=== PATIENT | male | born 1965 | race Caucasian/White ===

== ENCOUNTER 2016-12-30 10:51 | Outpatient (CLI) | payer OTHER | END 2016-12-30 10:52 | disposition home or self-care (01) | DX: R07.9 Chest pain, unspecified (principal); I10 Essential (primary) hypertension; E78.5 Hyperlipidemia, unspecified; E11.9 Type 2 diabetes mellitus without complications; E66.01 Morbid (severe) obesity due to excess calories ==

== ENCOUNTER 2017-07-18 06:56 | Day surgery (SDC) | payer OTHER ==
[2017-07-18] MEDS ORDERED: LACTATED RINGERS 1,000 ML IV ONE ×2 (07:10→08:44)
[2017-07-18] MEDS ORDERED: MIDAZOLAM 2 MG/2 ML VIAL IVP ONE (08:30)
[2017-07-18] MEDS ORDERED: fentaNYL 100 MCG/2 ML VIAL IVP ONE (08:30)
[2017-07-18 09:50] VITALS: BP 128/70
== END 2017-07-18 06:57 | disposition home or self-care (01) ==
LOC: SDS 06:56
PROVIDERS: ATTEND Surgery
PROC: 0DJD8ZZ Inspection of Lower Intestinal Tract, Via Natural or Artificial Opening Endoscopic (ICD-10-PCS; principal; 2017-07-18 08:15)
DX: Z12.11 Encounter for screening for malignant neoplasm of colon (principal); K57.30 Diverticulosis of large intestine without perforation or abscess without bleeding; Z80.0 Family history of malignant neoplasm of digestive organs; E11.9 Type 2 diabetes mellitus without complications; E78.5 Hyperlipidemia, unspecified; I10 Essential (primary) hypertension; G47.30 Sleep apnea, unspecified; Z87.891 Personal history of nicotine dependence
CPT/HCPCS: 45378; J7120

== ENCOUNTER 2020-08-06 20:20 | Inpatient (IN) | payer OTHER ==
--- NOTE | 2020-08-06 20:43 | ED Physician Documentation ---
History of Present Illness - Stated complaint Stated Complaint: ABD PX - Chief complaint Chief Complaint: Abd Pain - History obtained from History obtained from: Patient - Additonal information Additional information: The patient is a 55 Y/O M who presents with a cc of periumbilical abd pain with nausea but no vomiting or diarrhea/constipation. denies any flank pain, dysuria or hematuria. denies any hx of prior abd surgery. denies any other complaints to include fever/cp/sob. Review of Systems Constitutional: reports: Reviewed and negative Eyes: reports: Reviewed and negative Ears: reports: Reviewed and negative Nose: reports: Reviewed and negative Throat: reports: Reviewed and negative Cardiac: reports: Reviewed and negative Respiratory: reports: Reviewed and negative GI: reports: Abdominal Pain, Nausea : reports: Reviewed and negative Skin: reports: Reviewed and negative Musculoskeletal: reports: Reviewed and negative Neurologic: reports: Reviewed and negative Psychiatric: reports: Reviewed and negative Endocrine: reports: Reviewed and negative Immunocompromised: reports: Reviewed and negative PD PAST MEDICAL HISTORY - Past Medical History Cardiovascular: Hypertension, High cholesterol, Coronary artery disease Respiratory: Sleep apnea Endocrine/Autoimmune: Type 2 diabetes GI: None : None HEENT: None Psych: None Musculoskeletal: None Derm: None - Past Surgical History Past Surgical History: No Ortho: Other - Present Medications Home Medications: Ambulatory Orders Medication Instructions Recorded Confirmed Aspirin [Adult Low Dose Aspirin EC] 81 mg PO DAILY 07/18/17 07/18/17 Atorvastatin [Lipitor] 1 tab PO DAILY 07/18/17 07/18/17 Gabapentin [Neurontin] 300 mg PO HS 07/18/17 07/18/17 Lisinopril [Prinivil] 10 mg PO DAILY 07/18/17 07/18/17 metFORMIN [Glucophage] 500 mg PO DAILY 07/18/17 07/18/17 - Allergies Allergies/Adverse Reactions: Allergies Allergy/AdvReac Type Severity Reaction Status Date / Time No Known Drug Allergies Allergy Verified 08/06/20 20:30 - Social History Does the pt smoke?: No Smoking Status: Never smoker Does the pt drink ETOH?: No Does the pt have substance abuse?: No - Immunizations Immunizations are current?: Yes - POLST Patient has POLST: No PD ED PE NORMAL - Vitals Vital signs reviewed: Yes - General General: Alert and oriented X 3, No acute distress, Well developed/nourished - HEENT HEENT: Atraumatic, PERRL, Moist mucous membranes - Neck Neck: Supple, no meningeal sign, No JVD - Cardiac Cardiac: RRR, No murmur, Strong equal pulses - Respiratory Respiratory: No respiratory distress, Clear bilaterally - Abdomen Abdomen: Normal bowel sounds, Soft, Other (ttp over the periumbilical region. neg rovsings, neg psoas. no bruising.) - Back Back: No CVA TTP, No spinal TTP - Derm Derm: Normal color, Warm and dry, No rash - Extremities Extremities: No deformity, No tenderness to palpate, Normal ROM s pain, No edema, No calf tenderness / cord - Neuro Neuro: Alert and oriented X 3, card runner 2-12 intact, No motor deficit, No sensory deficit, Normal speech - Psych Psych: Normal mood, Normal affect Results - Vitals Vitals: Vital Signs - 24 hr 08/06/20 08/06/20 08/06/20 20:28 20:32 22:30 Temperature 36.8 C Heart Rate 147 H 68 Respiratory 17 18 14 Rate Blood Pressure 149/82 H 176/87 H O2 Saturation 96 96 Oxygen O2 Source Room air - Labs Labs: Laboratory Tests 08/06/20 08/06/20 08/06/20 20:30 20:40 20:40 WBC 10.2 RBC 5.10 Hgb 14.2 Hct 43.7 MCV 85.7 MCH 27.8 MCHC 32.5 RDW 14.0 Plt Count 209 MPV 10.0 Neut # (Auto) 6.4 Lymph # (Auto) 2.8 [place] # (Auto) 0.8 Eos # (Auto) 0.1 Baso # (Auto) 0.1 Absolute Nucleated RBC 0.00 Nucleated RBC % 0.0 PT 12.4 INR 1.1 APTT 30.3 Sodium Potassium Chloride Carbon Dioxide Anion Gap BUN Creatinine Estimated GFR (MDRD) Glucose Lactic Acid Calcium Total Bilirubin AST ALT Alkaline Phosphatase Total Creatine Kinase Total Protein Albumin Globulin Albumin/Globulin Ratio Lipase Urine Color YELLOW Urine Clarity CLEAR Urine pH 5.5 Ur Specific [place] >=1.030 H Urine Protein NEGATIVE Urine Glucose (UA) NEGATIVE Urine Ketones NEGATIVE Urine Occult Blood SMALL H Urine Nitrite NEGATIVE Urine Bilirubin NEGATIVE Urine Urobilinogen 0.2 (NORMAL) Ur Leukocyte Esterase NEGATIVE Urine RBC 6-10 H Urine WBC 0-3 Ur Squamous Epith Cells NONE SEEN Urine Bacteria None Seen Ur Microscopic Review INDICATED Urine Culture Comments NOT INDICATED 08/06/20 08/06/20 20:40 20:59 WBC RBC Hgb Hct MCV MCH MCHC RDW Plt Count MPV Neut # (Auto) Lymph # (Auto) [place] # (Auto) Eos # (Auto) Baso # (Auto) Absolute Nucleated RBC Nucleated RBC % PT INR APTT Sodium 140 Potassium 3.6 Chloride 99 L Carbon Dioxide 33 H Anion Gap 8.0 BUN 15 Creatinine 1.2 Estimated GFR (MDRD) 63 L Glucose 132 H Lactic Acid 1.1 Calcium 9.6 Total Bilirubin 1.0 AST 31 ALT 42 Alkaline Phosphatase 79 Total Creatine Kinase 303 H Total Protein 7.9 Albumin 4.5 Globulin 3.4 Albumin/Globulin Ratio 1.3 Lipase 29 Urine Color Urine Clarity Urine pH Ur Specific [place] Urine Protein Urine Glucose (UA) Urine Ketones Urine Occult Blood Urine Nitrite Urine Bilirubin Urine Urobilinogen Ur Leukocyte Esterase Urine RBC Urine WBC Ur Squamous Epith Cells Urine Bacteria Ur Microscopic Review Urine Culture Comments PD MEDICAL DECISION MAKING - ED course Complexity details: reviewed old records, reviewed results, re-evaluated patient, considered differential, d/w patient, other ED course: ct scan shows umbilical hernia with SBO. case d/w surgeon who will admit this pa tient. unable to reduce hernia on exam. - Consults Consults: Discussed case with (dr. ramirez, general surgery. will admit to hospital.) Departure - Departure Disposition: 66 [facility] DC/Xfer Clinical Impression: SBO (small bowel obstruction) Umbilical hernia Qualifiers: Obstruction and gangrene presence: with obstruction but without gangrene Qualified Code(s): K42.0 - Umbilical hernia with obstruction, without gangrene Condition: Stable Discharge Date/Time: 08/06/20 23:44
[2020-08-06 20:44] LABS: BILIRUBIN,URINE NEGATIVE (NEGATIVE); GLUCOSE, URINE (UA) NEGATIVE (NEGATIVE); KETONES,URINE (UA) NEGATIVE (NEGATIVE); LEUKOCYTE ESTERASE, URINE NEGATIVE (NEGATIVE); NITRITE,URINE NEGATIVE (NEGATIVE); OCCULT BLOOD,URINE SMALL (NEGATIVE); PH,URINE 5.5 PH (5.0-7.5); PROTEIN,URINE NEGATIVE (NEGATIVE); UROBILINOGEN,URINE 0.2 (NORMAL) E.U./dL (NORMAL)
[2020-08-06 20:45] LABS: CLARITY,URINE CLEAR (CLEAR)
[2020-08-06 20:50] LABS: BACTERIA,URINE None Seen /HPF (None Seen); SQUAMOUS EPITHELIAL CELL,UR NONE SEEN (<= Few)
[2020-08-06] MEDS ORDERED: SODIUM CHLORIDE 0.9% 1,000 ML IV STA (20:52)
[2020-08-06] MEDS ORDERED: MORPHINE 2 MG/ML CARPUJECT IVP STA (20:52)
[2020-08-06] MEDS ORDERED: ONDANSETRON 4 MG/2 ML VIAL IVP STA (20:52)
[2020-08-06 20:59] LABS: BASOPHILS # (AUTO) 0.1 10^3/uL (0.0-0.1); BASOPHILS % (AUTO) 0.8 %; EOSINOPHILS # (AUTO) 0.1 10^3/uL (0.0-0.7); EOSINOPHILS % (AUTO) 1.3 %; HGB - HEMOGLOBIN 14.2 g/dL (14.0-18.0); LYMPHOCYTES # (AUTO) 2.8 10^3/uL (1.5-3.5); LYMPHOCYTES % (AUTO) 27.2 %; MEAN CORPUSCULAR HEMOGLOBIN 27.8 pg (27.0-31.0); MEAN CORPUSCULAR HGB CONC 32.5 g/dL (32.0-36.0); MEAN CORPUSCULAR VOLUME 85.7 fL (80.0-94.0); MONOCYTES # (AUTO) 0.8 10^3/uL (0.0-1.0); MONOCYTES % (AUTO) 7.7 %; NEUTROPHILS # (AUTO) 6.4 10^3/uL (1.5-6.6); NEUTROPHILS % (AUTO) 62.6 %; PLT - PLATELET COUNT 209 10^3/uL (130-450); WHITE BLOOD COUNT 10.2 x10^3/uL (4.8-10.8)
[2020-08-06 21:06] LABS: INR 1.1 (0.8-1.2); PT - PROTHROMBIN TIME 12.4 secs (9.9-12.6)
[2020-08-06 21:13] LABS: PARTIAL THROMBOPLASTIN TIME 30.3 secs (24.9-33.3)
[2020-08-06 21:17] LABS: ALBUMIN 4.5 g/dL (3.2-5.5); ALBUMIN/GLOBULIN RATIO 1.3 (1.0-2.2); CALCIUM 9.6 mg/dL (8.5-10.3); CREATININE 1.2 mg/dL (0.6-1.2); TOTAL PROTEIN 7.9 g/dL (6.7-8.2)
[2020-08-06] MEDS ORDERED: IOVERSOL 320 100 ML VIAL IVP ONE ×2 (21:34→22:04)
[2020-08-06] MEDS ORDERED: HYDROmorphone 0.5 MG/0.5 ML SYRINGE IVP PRN (23:00)
[2020-08-06] MEDS ORDERED: ONDANSETRON ODT 4 MG TABLET TL PRN (23:00)
[2020-08-06] MEDS ORDERED: PROCHLORPERAZINE 10 MG/2 ML VIAL IVP PRN (23:00)
[2020-08-06] MEDS ORDERED: oxyCODONE 5 MG TABLET PO PRN (23:00)
[2020-08-06] MEDS ORDERED: ONDANSETRON 4 MG/2 ML VIAL IVP PRN (23:00)
[2020-08-06] MEDS ORDERED: ACETAMINOPHEN 325 MG TABLET PO PRN (23:00)
[2020-08-06] MEDS ORDERED: SODIUM CHLORIDE FLUSH 0.9% 10 ML SYRINGE IVP PRN (23:00)
[2020-08-06] MEDS: D5NS W/20 MEQ KCL 1,000 ML IV SCH (23:49)
[2020-08-06] MEDS: SODIUM CHLORIDE FLUSH 0.9% 10 ML SYRINGE IVP SCH (23:49)
[2020-08-07] MEDS: D5NS W/20 MEQ KCL 1,000 ML IV SCH (07:48)
--- NOTE | 2020-08-07 08:43 | CT Report ---
PROCEDURE: Abdomen/Pelvis W INDICATIONS: Periumbilical abdominal pain CONTRAST: IV CONTRAST: Optiray 320 ml: 100 PO CONTRAST: *NO PO CONTRAST TECHNIQUE: After the administration of intravenous contrast, 5 mm thick sections acquired from the diaphragms to the symphysis. 5 mm thick coronal and sagittal reformats were acquired. For radiation dose reducti on, the following was used: automated exposure control, adjustment of mA and/or kV according to emerita ent size. COMPARISON: None. FINDINGS: Image quality: Excellent. ABDOMEN: Lung bases: Lung bases are clear. Heart size is normal. Solid organs: Liver and spleen are normal in size and enhancement. Gallbladder is normal. Biliary system is non dilated. Pancreas enhances normally. No adrenal nodules. Kidneys demonstrate normal size and enhancement, without hydronephrosis. Peritoneum and bowel: Multiple small bowel loops are dilated up to 3.6 cm. There is a transition poin t within a small presumably incarcerated umbilical hernia (best appreciated on sagittal images 50-52 and axial images 61-63). Remaining bowel unremarkable. Nodes and vessels: No retroperitoneal or mesenteric adenopathy by size criteria. Aorta and inferior vena cava are normal in size. Miscellaneous: No ventral hernias. PELVIS: Genitourinary: Bladder wall thickness is normal. Miscellaneous: No inguinal hernias or adenopathy. Bones: No suspicious bony lesions. No vertebral body compression fractures. IMPRESSION: Small bowel obstruction with transition point within the small and presumably incarcerated umbilical hernia. Surgical consultation recommended. No significant change from preliminary report. Reviewed by: Kyle Hoffman MD on 08/07/2020 8:42 AM PDT Approved by: Kyle Hoffman MD on 08/07/2020 8:42 AM PDT Station ID: [id number]
--- NOTE | 2020-08-07 08:55 | PHARMACY PROGRESS NOTE ---
- Best Possible Medication History Admit Date and Time: 08/06/20 2300 Processed by: Pharmacy Medication History completed: Yes Patient Interview: Completed Secondary Source(s): Physician records (PATIENT INTERVIEWED BY SALESPERSON FLOWERS. PATIENT ABLE TO CONFIRM HOME MEDICATIONS), Pharmacy records, Insurance records As the person ultimately responsible for medication therapy, providers are able to order a medication from an existing home medication list in [facility] via the "Reconcile Routine" prior to Confirmation of that medication by support manager. Such practice is discouraged except when the physician, in their clinical judgment, deems that a medical need exists for a medication without regard to previous use.
[2020-08-07] MEDS ORDERED: FAMOTIDINE 20 MG TABLET PO SCH (09:00)
--- NOTE | 2020-08-07 09:14 | HISTORY & PHYSICAL EXAMINATION ---
Chief Complaint - Chief Complaint Chief Complaint: sharp periumbilical pain yesterday Abdominal Pain HPI - Admitted From Admitted from: ED - History Obtained From History obtained from: Patient, Other Exam limitations: No limitations - History of Present Illness Severity at the worst: Severe Pain Quality: Sharp Timing: Gradual onset Duration: Minutes: (8 hours), Hours: Improved with: Rest Associated symptoms: Other (none) HPI Comment/Other: He was working over the mills of the car when the pain started. He could feel a very tender umbilical lump. He had not noticed a lump or bulge previously PMH/PSH - Past Medical History Cardiovascular: positive: Hypertension, High cholesterol, Coronary artery disease Respiratory: positive: Sleep apnea Endocrine/Autoimmune: positive: Type 2 diabetes GI: positive: None : positive: None HEENT: positive: None Psych: positive: None Musculoskeletal: positive: None Derm: positive: None MRSA Hx?: No - Past Surgical History General: positive: Colonoscopy Ortho: positive: Other Social & Family Hx - Social History Does the pt smoke?: No Smoking Status: Never smoker Does the pt drink ETOH?: No Does the pt have substance abuse?: No - POLST Patient has POLST: No Meds/Allgy - Home Medications Home Medications: Ambulatory Orders Medication Instructions Recorded Confirmed Aspirin [Adult Low Dose Aspirin EC] 81 mg PO DAILY 07/18/17 08/07/20 Lisinopril [Prinivil] 10 mg PO DAILY 07/18/17 08/07/20 metFORMIN [Glucophage] 500 mg PO DAILY 07/18/17 08/07/20 Atorvastatin Calcium 40 mg PO QPM 08/07/20 08/07/20 Gabapentin 800 mg PO QPM 08/07/20 08/07/20 - Allergies Allergies/Adverse Reactions: Allergies Allergy/AdvReac Type Severity Reaction Status Date / Time No Known Drug Allergies Allergy Verified 08/06/20 20:30 Review of Systems - Other Findings Other Findings: 10 pt ros as above otherwise unremarkable Exam - Vital Signs Reviewed Vital Signs: Yes Vital Signs: Vital Signs x48h Temp Pulse Resp BP Pulse Ox 08/07/20 07:22 36.5 C 72 16 122/74 96 - Physical Exam General Appearance: positive: No acute distress, Alert Eyes Bilateral: positive: Normal inspection, PERRL, EOMI ENT: positive: No signs of dehydration Neck: positive: No JVD Respiratory: positive: No respiratory distress Abdomen: positive: Other (obese limiting exam. minimal periumbilical tenderness at this time hernia clinically has reduced overnight) Results - Lab Results Fish Bones: 08/06/20 20:40 08/06/20 20:40 Other Lab Results: Lab Results x24hrs 08/07/20 08/06/20 08/06/20 Range/Units 06:06 20:59 20:40 WBC (4.8-10.8) x10^3/uL RBC (4.70-6.10) 10^6/uL Hgb (14.0-18.0) g/dL Hct (42.0-52.0) % MCV (80.0-94.0) fL MCH (27.0-31.0) pg MCHC (32.0-36.0) g/dL RDW (12.0-15.0) % Plt Count (130-450) 10^3/uL MPV (7.4-11.4) fL Neut # (Auto) (1.5-6.6) 10^3/uL Lymph # (Auto) (1.5-3.5) 10^3/uL [place]irt # (Auto) (0.0-1.0) 10^3/uL Eos # (Auto) (0.0-0.7) 10^3/uL Baso # (Auto) (0.0-0.1) 10^3/uL Absolute Nucleated RBC x10^3/uL Nucleated RBC % /100WBC PT (9.9-12.6) secs INR (0.8-1.2) APTT (24.9-33.3) secs Sodium 140 (135-145) mmol/L Potassium 3.6 (3.5-5.0) mmol/L Chloride 99 L (101-111) mmol/L Carbon Dioxide 33 H (21-32) mmol/L Anion Gap 8.0 (6-13) BUN 15 (6-20) mg/dL Creatinine 1.2 (0.6-1.2) mg/dL Estimated GFR (MDRD) 63 L (>89) Glucose 132 H (70-100) mg/dL POC Whole Bld Glucose 134 H (70 - 100) mg/dL Lactic Acid 1.1 (0.5-2.2) mmol/L Calcium 9.6 (8.5-10.3) mg/dL Total Bilirubin 1.0 (0.2-1.0) mg/dL AST 31 (10-42) IU/L ALT 42 (10-60) IU/L Alkaline Phosphatase 79 (42-121) IU/L Total Creatine Kinase 303 H (22-269) IU/L Total Protein 7.9 (6.7-8.2) g/dL Albumin 4.5 (3.2-5.5) g/dL Globulin 3.4 (2.1-4.2) g/dL Albumin/Globulin Ratio 1.3 (1.0-2.2) Lipase 29 (22-51) U/L Urine Color Urine Clarity (CLEAR) Urine pH (5.0-7.5) PH Ur Specific [place] (1.002-1.030) Urine Protein (NEGATIVE) mg/dL Urine Glucose (UA) (NEGATIVE) mg/dL Urine Ketones (NEGATIVE) mg/dL Urine Occult Blood (NEGATIVE) Urine Nitrite (NEGATIVE) Urine Bilirubin (NEGATIVE) Urine Urobilinogen (NORMAL) E.U./dL Ur Leukocyte Esterase (NEGATIVE) Urine RBC (0-5) /HPF Urine WBC (0-3) /HPF Ur Squamous Epith Cells (<= Few) Urine Bacteria (None Seen) /HPF Ur Microscopic Review Urine Culture Comments 08/06/20 08/06/20 08/06/20 Range/Units 20:40 20:40 20:30 WBC 10.2 (4.8-10.8) x10^3/uL RBC 5.10 (4.70-6.10) 10^6/uL Hgb 14.2 (14.0-18.0) g/dL Hct 43.7 (42.0-52.0) % MCV 85.7 (80.0-94.0) fL MCH 27.8 (27.0-31.0) pg MCHC 32.5 (32.0-36.0) g/dL RDW 14.0 (12.0-15.0) % Plt Count 209 (130-450) 10^3/uL MPV 10.0 (7.4-11.4) fL Neut # (Auto) 6.4 (1.5-6.6) 10^3/uL Lymph # (Auto) 2.8 (1.5-3.5) 10^3/uL [place] # (Auto) 0.8 (0.0-1.0) 10^3/uL Eos # (Auto) 0.1 (0.0-0.7) 10^3/uL Baso # (Auto) 0.1 (0.0-0.1) 10^3/uL Absolute Nucleated RBC 0.00 x10^3/uL Nucleated RBC % 0.0 /100WBC PT 12.4 (9.9-12.6) secs INR 1.1 (0.8-1.2) APTT 30.3 (24.9-33.3) secs Sodium (135-145) mmol/L Potassium (3.5-5.0) mmol/L Chloride (101-111) mmol/L Carbon Dioxide (21-32) mmol/L Anion Gap (6-13) BUN (6-20) mg/dL Creatinine (0.6-1.2) mg/dL Estimated GFR (MDRD) (>89) Glucose (70-100) mg/dL POC Whole Bld Glucose (70 - 100) mg/dL Lactic Acid (0.5-2.2) mmol/L Calcium (8.5-10.3) mg/dL Total Bilirubin (0.2-1.0) mg/dL AST (10-42) IU/L ALT (10-60) IU/L Alkaline Phosphatase (42-121) IU/L Total Creatine Kinase (22-269) IU/L Total Protein (6.7-8.2) g/dL Albumin (3.2-5.5) g/dL Globulin (2.1-4.2) g/dL Albumin/Globulin Ratio (1.0-2.2) Lipase (22-51) U/L Urine Color YELLOW Urine Clarity CLEAR (CLEAR) Urine pH 5.5 (5.0-7.5) PH Ur Specific [place] >=1.030 H (1.002-1.030) Urine Protein NEGATIVE (NEGATIVE) mg/dL Urine Glucose (UA) NEGATIVE (NEGATIVE) mg/dL Urine Ketones NEGATIVE (NEGATIVE) mg/dL Urine Occult Blood SMALL H (NEGATIVE) Urine Nitrite NEGATIVE (NEGATIVE) Urine Bilirubin NEGATIVE (NEGATIVE) Urine Urobilinogen 0.2 (NORMAL) (NORMAL) E.U./dL Ur Leukocyte Esterase NEGATIVE (NEGATIVE) Urine RBC 6-10 H (0-5) /HPF Urine WBC 0-3 (0-3) /HPF Ur Squamous Epith Cells NONE SEEN (<= Few) Urine Bacteria None Seen (None Seen) /HPF Ur Microscopic Review INDICATED Urine Culture Comments NOT INDICATED - Diagnostic Imaging Results Diagnostic Imaging Results: positive: Read independently (richters hernia present on admission) Impression/Plan - Problem List Problem List: richters/ periumbilical hernia with incarcerated small bowel on admission. He is improved. Plan open repair likely with mesh. parq held and consent obtained
[2020-08-07] MEDS ORDERED: ceFAZolin 3 GM in SODIUM CHLORIDE 0.9% 100ML 100 ML IV ONE (09:19)
[2020-08-07] MEDS ORDERED: BUPIVACAINE 0.25% PF 30 ML VIAL ONE (12:49)
[2020-08-07] MEDS ORDERED: LIDOCAINE 1% 50 ML MDV ONE (12:49)
--- NOTE | 2020-08-07 13:12 | ANESTHESIA ---
Pre-Anesthesia VS, & Labs - Diagnosis umbilical hernia - Procedure Open umbilical hernia repair Vital Signs: Temp Pulse Resp BP Pulse Ox 36.5 C 72 16 122/74 96 08/07/20 07:22 08/07/20 07:22 08/07/20 07:22 08/07/20 07:22 08/07/20 07:22 Height: 5 ft 11 in Weight (kg): 139.5 kg Body Mass Index: 42.9 BMI Classification: Morbidly Obese - NPO >8 hours - Lab Results Current Lab Results: Laboratory Tests 08/07/20 11:10: POC Whole Bld Glucose 109 H 08/07/20 06:06: POC Whole Bld Glucose 134 H 08/06/20 20:59: Lactic Acid 1.1 08/06/20 20:40: Sodium 140, Potassium 3.6, Chloride 99 L, Carbon Dioxide 33 H, Anion Gap 8.0, BUN 15, Creatinine 1.2, Estimated GFR (MDRD) 63 L, Glucose 132 H, Calcium 9.6, Total Bilirubin 1.0, AST 31, ALT 42, Alkaline Phosphatase 79, Total Creatine Kinase 303 H, Total Protein 7.9, Albumin 4.5, Globulin 3.4, Albumin/Globulin Ratio 1.3, Lipase 29 08/06/20 20:40: PT 12.4, INR 1.1, APTT 30.3 08/06/20 20:40: WBC 10.2, RBC 5.10, Hgb 14.2, Hct 43.7, MCV 85.7, MCH 27.8, MCHC 32.5, RDW 14.0, Plt Count 209, MPV 10.0, Neut # (Auto) 6.4, Lymph # (Auto) 2.8, [place] # (Auto) 0.8, Eos # (Auto) 0.1, Baso # (Auto) 0.1, Absolute Nucleated RBC 0.00, Nucleated RBC % 0.0 Lab results reviewed: Yes Fish Bones: 08/06/20 20:40 08/06/20 20:40 Home Medications and Allergies Home Medications: Ambulatory Orders Atorvastatin Calcium 40 mg PO QPM 08/07/20 Gabapentin 800 mg PO QPM 08/07/20 Active Medications Acetaminophen (Tylenol) 650 mg PO Q4HR PRN PRN Reason: Pain 1 to 4 Famotidine (Pepcid) 20 mg PO BID BESSIE Last Admin: 08/07/20 10:06 Dose: 20 mg Documented by: Hydromorphone HCl (Dilaudid Inj Syringe) 0.5 mg IVP Q2H PRN PRN Reason: Pain 8 to 10 Potassium Chloride/Dextrose/Sod Cl () 1,000 mls @ 125 mls/hr IV .Q8H [facility] Last Admin: 08/07/20 07:48 Dose: 125 mls/hr Documented by: Ondansetron HCl (Zofran Odt) 4 mg TL Q6HR PRN PRN Reason: Nausea / Vomiting Ondansetron HCl (Zofran Inj) 4 mg IVP Q6HR PRN PRN Reason: Nausea / Vomiting Oxycodone HCl (Roxicodone) 5 mg PO Q4HR PRN PRN Reason: Pain 5 to 7 Prochlorperazine Edisylate (Compazine Inj) 10 mg IVP Q6HR PRN PRN Reason: Nausea / Vomiting Sodium Chloride (Normal Saline Flush 0.9%) 10 ml IVP PRN PRN PRN Reason: NEEDED PER PROVIDER ORDERS Sodium Chloride (Normal Saline Flush 0.9%) 10 ml IVP 0100,0900,1700 [facility] Last Admin: 08/06/20 23:49 Dose: 10 ml Documented by: Aspirin [Adult Low Dose Aspirin EC] 81 mg PO DAILY 07/18/17 Lisinopril [Prinivil] 10 mg PO DAILY 07/18/17 metFORMIN [Glucophage] 500 mg PO DAILY 07/18/17 Atorvastatin Calcium 40 mg PO QPM 08/07/20 Gabapentin 800 mg PO QPM 08/07/20 Allergies/Adverse Reactions: Allergies Allergy/AdvReac Type Severity Reaction Status Date / Time No Known Drug Allergies Allergy Verified 08/06/20 20:30 Anes History & Medical History - Anesthetic History Anesthesia Complications: reports: No previous complications Family history of Anesthesia Complications: Denies Family history of Malignant Hyperthermia: Denies - Medical History Cardiovascular: reports: Hypertension, High cholesterol, Coronary artery disease Pulmonary: reports: Sleep apnea Gastrointestinal: reports: None Urinary: reports: None Musculoskeletal: reports: None Endocrine/Autoimmune: reports: Type 2 diabetes Skin: reports: None Smoking Status: Never smoker - Surgical History General: Colonoscopy Orthopedic: Other Exam General: Alert, Oriented x3, Cooperative, No acute distress Dental: WNL Mouth Openin Fingerbreadth Neck Mobility: Normal Mallampati classification: II Respiratory: Lungs clear, Normal breath sounds, No respiratory distress, No accessory muscle use Cardiovascular: Regular rate, Normal S1, Normal S2, No murmurs Plan Anesthesia Type: General Consent for Procedure(s) Verified and Reviewed: Yes Code Status: Attempt Resuscitation ASA classification: 3-Severe systemic disease Is this case an emergency?: No
[2020-08-07] MEDS ORDERED: HYDROmorphone 0.5 MG/0.5 ML SYRINGE IVP PRN (15:03)
[2020-08-07] MEDS ORDERED: METOCLOPRAMIDE 10 MG/2 ML VIAL IVP PRN (15:03)
[2020-08-07] MEDS ORDERED: NALOXONE 0.4 MG/ML VIAL IVP PRN (15:03)
[2020-08-07] MEDS ORDERED: ePHEDrine 50 MG/ML VIAL IVP PRN (15:03)
[2020-08-07] MEDS ORDERED: MORPHINE 2 MG/ML CARPUJECT IVP PRN (15:03)
[2020-08-07] MEDS ORDERED: ONDANSETRON 4 MG/2 ML VIAL IVP PRN (15:03)
[2020-08-07] MEDS ORDERED: ATROPINE ABBOJECT 1 MG/10 ML SYRINGE IVP PRN (15:03)
[2020-08-07] MEDS ORDERED: fentaNYL 100 MCG/2 ML VIAL IVP PRN (15:03)
[2020-08-07] MEDS: SODIUM CHLORIDE FLUSH 0.9% 10 ML SYRINGE IVP SCH ×2 (15:08→18:12)
[2020-08-07] MEDS ORDERED: PROPOFOL 200 MG/20 ML VIAL IVP ONE (15:19)
[2020-08-07] MEDS ORDERED: fentaNYL 100 MCG/2 ML VIAL IVP ONE (15:19)
[2020-08-07] MEDS ORDERED: ROCURONIUM 50 MG/5 ML VIAL IVP ONE (15:19)
[2020-08-07] MEDS ORDERED: LIDOCAINE-MPF 2% 5 ML VIAL IM ONE (15:19)
[2020-08-07] MEDS ORDERED: SUCCINYLCHOLINE 200 MG/10 ML VIAL IVP ONE (15:19)
[2020-08-07] MEDS ORDERED: MIDAZOLAM 2 MG/2 ML VIAL IVP ONE (15:19)
[2020-08-07] MEDS ORDERED: KETOROLAC 30 MG/ML VIAL IVP ONE (15:19)
[2020-08-07] MEDS ORDERED: DEXAMETHASONE 4 MG/ML VIAL IVP ONE (15:19)
[2020-08-07] MEDS ORDERED: ONDANSETRON 4 MG/2 ML VIAL IVP ONE (15:19)
[2020-08-07] MEDS ORDERED: ceFAZolin 1 GM VIAL ONE (15:41)
[2020-08-07] MEDS ORDERED: LACTATED RINGERS 1,000 ML IV SCH (16:00)
[2020-08-07] MEDS ORDERED: BUPIVACAINE 0.25% PF 30 ML VIAL SUBQ ONE (17:00)
[2020-08-07] MEDS ORDERED: LACTATED RINGERS 1,000 ML IV ONE (17:00)
[2020-08-07] MEDS ORDERED: LIDOCAINE 1% 50 ML MDV SUBQ ONE (17:00)
[2020-08-07] MEDS ORDERED: HYDROcod/ACETAM 5/325 MG TABLET PO PRN (17:01)
--- NOTE | 2020-08-07 17:05 | OPERATIVE REPORT ---
Operative Report - General Admit Date: 08/06/20 Procedure Date: 08/07/20 Planned Procedure: umbilical hernia repair with mesh Pre-Op Diagnosis: umbilical hernia Procedure Performed: umbilical hernia repair with mesh Post Op Diagnosis: umbilical hernia - Procedure Note Primary Surgeon: renan ramirez Anesthesia Technique: General ET tube Estimated Blood Loss (mL): 0 Complications: none
--- NOTE | 2020-08-07 17:28 | ANESTHESIA POST OP EVALUATION ---
Anesthesia Post Eval - Post Anesthesia Eval Vitals: Last Vital Signs Temp 36.5 C 08/07/20 17:00 Pulse 97 08/07/20 17:00 Resp 12 08/07/20 17:00 BP 139/88 H 08/07/20 17:00 Pulse Ox 97 08/07/20 17:00 CV Function Including HR & BP: positive: Stable Pain Control: positive: Satisfactory Nausea & Vomiting: positive: Negative Mental Status: positive: Baseline Respiratory Status: Airway Patent Hydration Status: Satisfactory Anesthesia Complications: positive: None
[2020-08-07] MEDS ORDERED: FLU VACC QS2020-21(6MOS UP)/PF 60 MCG/0.5 ML SYRINGE IM ONE (18:28)
[2020-08-07 21:00] VITALS: BP 148/76
--- NOTE | 2020-08-08 02:18 | OPERATIVE REPORT ---
DATE OF SERVICE: 08/07/2020 Physician: Champ Sharpe MD PREOPERATIVE DIAGNOSIS: Umbilical hernia with recent incarcerated small bowel. POSTOPERATIVE DIAGNOSIS: Umbilical hernia with recent incarcerated small bowel. PROCEDURE PERFORMED 1. Open umbilical hernia repair with mesh. 2. Preperitoneal retrorectus dissection for mesh placement. SURGEON: Champ Sharpe MD BROADCAST TRANSMITTER OPERATOR: None. ANESTHESIA: General endotracheal anesthesia. Local anesthesia with Marcaine. COMPLICATIONS: None. SPECIMEN: None. ESTIMATED BLOOD LOSS: None. DRAINS: None. PROSTHETIC: A 2-2-1/2 inch wide x 4-1/2 inch tall polypropylene mesh placed preperitoneal. INDICATIONS FOR PROCEDURE: The patient is a 55-year-old obese gentleman who was working on his vehic le yesterday. He was leaning over the mills of his car when he developed severe abdominal pain. He f elt tenderness at the periumbilical area. He was seen and evaluated through the emergency department . A CT scan was obtained revealing a Bright's-type hernia with small bowel present. There was no i nflammation. There was no evidence of bowel obstruction. The patient was admitted late in the [facility], the day prior to surgery. Overnight, the hernia reduced as pain improved. Surgery was still off ered urgently given the risk for further small bowel incarceration. Procedure was discussed in [facility] as well as risks and alternatives. All questions answered and consent obtained. DESCRIPTION OF PROCEDURE: The patient was properly identified and brought to the operating room and placed in supine position. General endotracheal anesthesia was induced. Sequential compression chandni nury were placed. He was prepped and draped in a sterile fashion and given preoperative antibiotics. Local anesthetic was given throughout the procedure. A 3-cm incision was made in midline, cephalad of the umbilicus. The incision was extended another 2-3 cm left lateral of the umbilicus. Dissectio n proceeded with cutting current, followed by blunt dissection. The umbilical skin was excised away from the hernia sac. The hernia defect measured approximately 2.5 cm. The hernia sac was carefully released from the fascial defect edge with cutting current cautery. A large preperitoneal retrorectu s space was carefully developed. A 2-2-1/2 inch wide x 4-1/2 inch tall polypropylene mesh was placed in the preperitoneal retrorectus space and secured with approximately 10 interrupted 0 Ti-Cron sutur es. An additional inner row of interrupted 0 Ti-Cron sutures was placed. Hemostasis was assured. There were no apparent complications. The umbilical skin was tacked back do wn to fascia with interrupted 2-0 Vicryl. Deep subcutaneous tissue was closed with interrupted 2-0 V icryl suture. Additional subcutaneous tissue was closed with interrupted 2-0 Vicryl suture. Buried interrupted subdermal 3-0 Vicryl sutures were then placed. Skin was closed with a running 4-0 Monocr yl subcuticular suture. Dressing was applied. He tolerated the procedure well. TD: 08/07/2020 20:25
--- NOTE | 2020-08-22 11:42 | DISCHARGE SUMMARY ---
"Discharge Summary Admit Date: 08/07/20 Discharge Date: 08/07/20 Discharging Provider: renan ramirez md Code Status: Attempt Resuscitation Condition at Discharge: Good - DIAGNOSES Admission Diagnoses: umbilical hernia with small bowel Discharge Diagnoses with Status of Each Condition: home in good condition following hernia repair - HPI History of Present Illness: presented with umbilical hernia with small bowel Bowel spontaneously reduced and hernia repaired. - CONSULTS | PROCEDURES Procedures: open umbilical hernia repair with mesh - HOSPITAL COURSE Hospital Course: home in good condition following surgery - ALLERGIES Allergies/Adverse Reactions: Allergies Allergy/AdvReac Type Severity Reaction Status Date / Time No Known Drug Allergies Allergy Verified 08/06/20 20:30 - MEDICATIONS Home Medications: Ambulatory Orders Medication Instructions Recorded Confirmed Aspirin [Adult Low Dose Aspirin EC] 81 mg PO DAILY 07/18/17 08/07/20 Lisinopril [Prinivil] 10 mg PO DAILY 07/18/17 08/07/20 metFORMIN [Glucophage] 500 mg PO DAILY 07/18/17 08/07/20 Atorvastatin Calcium 40 mg PO QPM 08/07/20 08/07/20 Gabapentin 800 mg PO QPM 08/07/20 08/07/20 Hydrocodone/Acetaminophen 1 each PO Q4HR PRN #30 tablet 08/07/20 [Hydrocodone-Acetamin 5-325 mg] - PHYSICAL EXAM AT DISCHARGE General Appearance: positive: No acute distress, Alert Eyes Bilateral: positive: Normal inspection, PERRL, EOMI Neck: positive: No JVD Respiratory: positive: No respiratory distress Abdomen: positive: Non-tender, Other (dressing c/d/i) Neurologic/Psychiatric: positive: Oriented x3 - LABS Result Diagrams: 08/06/20 20:40 08/06/20 20:40 - FOLLOW UP Follow Up: renan ramirez surgery [phone]"
== END 2020-08-07 20:35 | disposition home or self-care (01) | DRG 355 ==
LOC: ED 20:20 → MS2 23:00
PROVIDERS: ADMIT Surgery; ATTEND Surgery
PROC: 0WUF0JZ Supplement Abdominal Wall with Synthetic Substitute, Open Approach (ICD-10-PCS; principal; 2020-08-07 14:45)
DX: K42.0 Umbilical hernia with obstruction, without gangrene (principal); I10 Essential (primary) hypertension; E78.00 Pure hypercholesterolemia, unspecified; I25.10 Atherosclerotic heart disease of native coronary artery without angina pectoris; G47.30 Sleep apnea, unspecified; E11.9 Type 2 diabetes mellitus without complications; Z79.82 Long term (current) use of aspirin; Z79.84 Long term (current) use of oral hypoglycemic drugs; Z79.899 Other long term (current) drug therapy
CPT/HCPCS: 36415; 74177; 80053; 81001; 82550; 83605; 83690; 85025; 85610; 85730; 96374; 99283; 99285; A9270; C1781; J0330; J7120; Q9967; 81003; 87086

== ENCOUNTER 2021-05-19 15:42 | Outpatient (CLI) | payer OTHER ==
--- NOTE | 2021-05-19 16:35 | SLEEP CARE CONSULTATION ---
Information from patient questionnaire entered by Mirna Araujo. I have reviewed and concur with the information entered by Mirna Araujo. This document represents the service I personally performed and the decisions made by me, Ivanna Allison ARNP. History of Present Illness Service Date and Time: 05/19/2021 1542 Reason for Visit: New patient, Previously diagnosed sleep apnea (severe - AHI - 51.6, on BiPap), sleep apnea on CPAP therapy ([facility]), Re-establish care (last seen 2013) Chief Complaint: reports: Unrefreshed sleep, Snoring, Excessive daytime sleepiness, Fatigue, Frequent awakenings at night, Other (update supplies) Date of Onset: 4 years Usual bedtime: 9:30 PM Time it takes to fall asleep: 30-60 minutes Snores at night: Yes Observed to quit breathing while asleep: Yes Sleeps alone due to snoring: No Number of times waking at night: 2-3 Reasons for waking at night: reports: Bathroom, Other (unknown reason) Toss, Turn, or Twitch while sleeping: Yes Recalls having dreams: Yes (sometimes) Usually gets out of bed at: 5 am M-F; 0600 on weekends Feels refreshed in the morning: No Morning headache: Yes (sometimes, resolves after taking Excederin) Sleepy or fatigued during the day: Yes Ever fallen asleep while driving: No Takes day naps: No Dreams during day naps: No Prior sleep studies: Yes Year and Where: 2005 - [facility] Additional HPI information: KARLA TEAGUE was previsously diagnosed to have severe, AHI 51.6, obstructive sleep apnea-hypopnea syndrome and comes in today to re-establish care for BIPAP therapy. - Parasomnia Symptoms Ever been unable to move upon waking from sleep: No Walks in sleep: No Talks in sleep: No Ever acted out dreams in sleep: No Ever felt weak in the knees when startled or emotional: No Bothered by creepy, crawly, restless sensations in legs: Yes (arthritis right ankle) Problems with memory or concentration: No CPAP Compliance Data - Data Reviewed with Patient Average duration of nightly device use: 7 hours 22 minutes Compliance rate %: 95 Current pressure setting (cmH2O): 19/15 Humidity settin Average residual AHI: 1.7 Central apnea: 0.1 Obstructive apnea: 0.9 Average large leak: 11 mins 1 sec Compliance data discussion: He was getting supplies from [employer] but has not gotten any for some time. He has been trying to make his current supplies last. He is using a full face mask, ResMed Quattro Fx medium. He last changed it about 1 month. He is washing it daily. He states the machine seems to be losing suction on his face, he is getting noise waking him up and air into his eyes. This had been happening over the last couple years. He states that he thinks the headgear just comes lose and dislodges the mask. Subjective Patient concerns: reports: aerophagia (will burp in the morning, occasional, not every morning), air blowing in eyes, mask leak noise, dry mouth, nose, throat (sometimes dry mouth, not every night; humidifier runs out of water). denies: mask discomfort, condensation in mask/hose, nasal congestion, epistaxis, other Observed to snore while using device: Yes (rarely) Current pressure setting perceived as: comfortable On therapy, patient: reports: sleeping better, awakening more refreshed, being more awake and alert during the day, more rested overall, other (lately he has been more tired in the mornings). 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 Patient is and lives in [place]. Have you smoked in the past 12 months: No Cigarettes per day (20/pack): 20 Years of smokin Quit date: 1995 Smoking Pack Years: 20.0 Alcohol use: Yes Alcohol amount and frequency: 1 beer once a week Caffeine use: Yes Caffeine amount and frequency: 2 cups daily Family History Family history of sleep disordered breathing: No Allergies and Home Medications Drug allergies reviewed: Yes (NKDA) Home medication list reviewed: Yes Allergy and home medication list: Metformin 500 mg twice daily Lisinopril 10 mg daily Aspirin 81 mg daily Gabapentin 800 mg nightly Atorvastatin 40 mg nightly Melatonin 5 mg nightly Review of Systems Cardiovascular: reports: high blood pressure Gastrointestinal: denies: heartburn Neurological: denies: headaches Psychiatric: denies: anxiety, depression Ear/Nose/Throat: reports: wisdom teeth removed Endocrine: denies: thyroid disease Musculoskeletal: reports: back pain (sometimes), other (arthritis right ankle) Physical Exam Blood Pressure: 139/79 Cuff size: wrist Heart Rate: 78 O2 Saturation: 97 Height: 5 ft 11 in Weight: 322 lb Body Mass Index: 44.9 BMI Classification: Morbidly Obese Impression and Plan 1. Obstructive Sleep Apnea-Hypopnea Syndrome, severe, with good treatment compliance and good apnea control. On BIPAP therapy, the patient has better sleep quality and is more rested overall. Patient states he has been having more daytime fatigue lately and is concerned that his machine is not working properly. Patient has been having some issues with the pressure on his device and he comes in to see if he can update it. He has had some occasional dry mouth and aerophagia. He states it does not happen all the time. The patients CPAP is over 5 years old and of reasonable use. Thus, the CPAP will be updated. The new CPAPs also have a better humidity system which could assist control of patients dryness symptoms. A DWO prescription will be made. Compliance guidelines for new device and follow up discussed. Patient's apnea severity and rationale for treatment to reduce apnea, improve sleep quality and reduce cardiovascular and cerebrovascular events was reviewed. I also reviewed the benefit of consistent device use of BIPAP for hypertension and diabetes. 2. Obesity, unspecified. Currently patients BMI is 44.9. Patient states he knows he needs to lose weight but had not specific plan in mind. Obesity increases the risk of apnea, CPAP pressure requirements and overall health risks especially cardiovascular and diabetes. Thus patient is advised to lose weight. Weight loss can be done with reducing portion size, reducing refined foods and balancing content with vegetables, fruit and whole grain foods. Symptoms to report for additional pressure adjustment discussed. * Continue auto BIPAP pressure at 19/15 cmH2O * Update BIPAP and supplies * Notify me if snoring with mask or feeling that the pressure is too much or too little * Attempt to lose weight * Call this office if any problems using BIPAP * Return for follow up one month after getting new device, or sooner if concerns arise Counseling Topics: Spare mask, Weight loss health impact Visit Type: In Office Time Spent with Patient (minutes): 42 Provider Statement: I spent 100% of the Face to Face Visit with the patient with greater than 50% spent counseling the patient and coordination of care.
[2021-05-19 16:36] VITALS: BP 139/79
== END 2021-05-19 15:43 | disposition home or self-care (01) ==
LOC: SC 15:42
PROVIDERS: ATTEND Nurse Practitioner Family
DX: G47.33 Obstructive sleep apnea (adult) (pediatric) (principal); E66.01 Morbid (severe) obesity due to excess calories; Z68.41 Body mass index [BMI] 40.0-44.9, adult
CPT/HCPCS: 99203; 99212

== ENCOUNTER 2021-11-17 08:22 | Outpatient (CLI) | payer OTHER ==
[2021-11-17 08:59] VITALS: BP 138/82
--- NOTE | 2021-11-17 08:59 | SLEEP CARE CONSULTATION ---
Information from patient questionnaire entered by Juan Coronel MA. I have reviewed and concur with the information entered by Juan Coronel MA. This document represents the service I personally performed and the decisions made by , Ivanna Allison ARNP. History of Present Illness Service Date and Time: 11/17/2021 0822 Previous diagnosis: Severe, Obstructive Sleep Apnea-Hypopnea Syndrome AHI: 51.6 Reason for follow up: first compliance (SET UP 10/13, CINDY, [facility] ) Equipment type: BiPAP Equipment obtained from: [employer] (Getting supplies) Mask style: Full face (ResAir?) Backup mask available: Yes (old mask) Last cushion change: 2 weeks Prior sleep studies: Yes Year and Where: 2005 - [facility] HPI additional information: KARLA TEAGUE was diagnosed to have severe, AHI 51.6, obstructive sleep apnea- hypopnea syndrome and returned today for BIPAP therapy first compliance after updating device (Cindy) follow-up. Sleep Study - Results Prior sleep studies: Yes Year and Where: 2005 - [facility] CPAP Compliance Data - Data Reviewed with Patient Average duration of nightly device use: 6 hours 52 minutes Compliance rate %: 100 Current pressure setting (cmH2O): Average residual AHI: 2.8 Central apnea: 0.3 Average large leak: 0 minutes Compliance data discussion: He states he has been using his new Cindy BiPAP about 7 hours every night. Subjective Patient concerns: reports: dry mouth, nose, throat (dry mouth, sometimes, usually sleeping with mouth open). denies: aerophagia, mask discomfort, air blowing in eyes, mask leak noise, condensation in mask/hose, nasal congestion, epistaxis, other Observed to snore while using device: No Current pressure setting perceived as: comfortable On therapy, patient: reports: sleeping better, awakening more refreshed, being more awake and alert during the day, more rested overall. denies: drowsiness while driving Initial [place] Sleepiness Scale score: 16 (in 2012) Current [place] Sleepiness Scale score: 7 (2021) Allergies and Home Medications Home medication list reviewed: Yes (no changes) Review of Systems Review of systems same as previous: Yes (no changes) Physical Exam Vital signs obtained and entered by: Julissa CORONEL CMA AAMA Blood Pressure: 138/82 (RIGHT, PULSE WAS 80) Heart Rate: 83 O2 Saturation: 98 (WITH PAPER MASK) Height: 5 ft 11 in Weight: 307 lb (WITH CLOTHES) Weight change since last visit: 15 lb loss Body Mass Index: 42.8 BMI Classification: Morbidly Obese Impression and Plan 1. Obstructive Sleep Apnea-Hypopnea Syndrome, severe, with excellent treatment compliance and good apnea control. On BIPAP therapy, the patient has better sleep quality and is more rested overall. Patient states he is using it every night but because it is a Cindy we do not have ready access to his compliance information. [facility] was able to send us a compliance report and he was very compliant with good apnea control. He is very satisfied with his therapy with significant control of his apnea. Patient's apnea severity and rationale for treatment to reduce apnea, improve sleep quality and reduce cardiovascular and cerebrovascular events was reviewed. I also reviewed the benefit of consistent device use of BIPAP for hypertension and diabetes. Patient was encouraged to try to lose weight. * Continue BIPAP pressure at 19/15 cmH2O * Notify me if snoring with mask or feeling that the pressure is too much or too little * Attempt to lose weight * Call this office if any problems using BIPAP * Return for follow up in 1 year, or sooner if concerns arise Counseling Topics: Spare mask, Weight loss health impact Visit Type: In Office Time Spent with Patient (minutes): 23 Provider Statement: I spent 100% of the Face to Face Visit with the patient with greater than 50% spent counseling the patient and coordination of care.
== END 2021-11-17 08:23 | disposition home or self-care (01) ==
LOC: SC 08:22
PROVIDERS: ATTEND Nurse Practitioner Family
DX: G47.33 Obstructive sleep apnea (adult) (pediatric) (principal); E66.01 Morbid (severe) obesity due to excess calories; Z68.41 Body mass index [BMI] 40.0-44.9, adult
CPT/HCPCS: 99212; 99213